=== PATIENT | female | born 1990 ===

== ENCOUNTER 2021-01-21 16:59 | Emergency (ER) | payer MEDICAID ==
[~2021-01-21] VITALS: Ht 154.9 cm; Wt 84.1 kg
[2021-01-21 17:21] VITALS: TEMP 98.9
[2021-01-21] MEDS ORDERED: PROAIR HFA0.09 MG/AC IH (17:23)
[2021-01-21 17:47] LABS: STREP SCREEN NEGATIVE
[2021-01-21 19:09] VITALS: BP 127/83; PULSE 70
== END 2021-01-21 19:10 | disposition home or self-care (01) ==
LOC: COL.ER 16:59
PROVIDERS: Family Medicine
DX: J06.9 Acute upper respiratory infection, unspecified (principal); J45.909 Unspecified asthma, uncomplicated; F17.210 Nicotine dependence, cigarettes, uncomplicated; Z20.822 Contact with and (suspected) exposure to COVID-19; Z79.899 Other long term (current) drug therapy